=== PATIENT | male | born 1970 ===

== ENCOUNTER 2021-12-06 12:55 | Emergency (ER) | payer OTHER ==
[~2021-12-06] VITALS: Ht 175 cm; Wt 138.0 kg
[2021-12-06 13:21] LABS: BASOPHILS # (AUTO) 0.1 10^3/uL (0.0-0.1); BASOPHILS % (AUTO) 1 % (0-10); EOSINOPHILS # (AUTO) 0.1 10^3/uL (0.0-0.3); EOSINOPHILS % (AUTO) 1 % (0-10); HEMATOCRIT 46 % (40-54); HEMOGLOBIN 15.4 g/dL (13.3-17.7); LYMPHOCYTES # (AUTO) 1.9 10^3/uL (1.0-4.0); LYMPHOCYTES % (AUTO) 21 % (12-44); MEAN CORPUSCULAR HEMOGLOBIN 29 pg (25-34); MEAN CORPUSCULAR HGB CONC 34 g/dL (32-36); MEAN CORPUSCULAR VOLUME 87 fL (80-99); MEAN PLATELET VOLUME 9.8 fL (9.0-12.2); MONOCYTES # (AUTO) 0.4 10^3/uL (0.0-1.0); MONOCYTES % (AUTO) 4 % (0-12); NEUTROPHILS # (AUTO) 6.4 10^3/uL (1.8-7.8); NEUTROPHILS % (AUTO) 72 % (42-75); PLATELET COUNT 208 10^3/uL (130-400); WHITE BLOOD COUNT 8.8 10^3/uL (4.3-11.0)
--- NOTE | 2021-12-06 13:27 | ED Cardiac General ---
History of Present Illness General Chief Complaint: Cardiac/General Problems Stated Complaint: HIGH BP 225/115 Nursing Triage Note: PT AMB TO [facility] 3 WITH C/O DIZZINESS SINCE YESTERDAY AND HIGH BP WHEN HE CHECKED IT WITH HIS HOME MONITOR. PT STATES THE DIZZINES STARTED YESTERDAY WHILE HE WAS LYING DOWN AND IT HASNT GONE AWAY Source: patient Exam Limitations: no limitations History of Present Illness Date Seen by Provider: Dec 06, 2021 Time Seen by Provider: 13:25 Initial Comments To ER by private vehicle with reports of dizziness intermittently since . This seems to be brought on by laying down flat. He also has had some nausea and general malaise. No headache. He checked his blood pressure at home on a wrist blood pressure cuff and found it to be 225/115. His fiance then insisted he come to the emergency room to be checked out. Father has a history of strokes. At this time he has no dizziness but he does have some mild nausea. Timing/Duration: changing over time Severity: moderate Location: central Activities at Onset: none Prior CP/Workup: no prior chest pain NTG SL SENIOR SOFTWARE ARCHITECT: No ASA po SENIOR SOFTWARE ARCHITECT: No Associated Systoms: Malaise Allergies and Home Medications Allergies Coded Allergies: No Known Drug Allergies (Unverified , 12/06/21) Patient Home Medication List Home Medication List Reviewed: Yes Review of Systems Review of Systems Constitutional: see HPI, dizziness EENTM: See HPI Respiratory: No Symptoms Reported Cardiovascular: No Symptoms Reported Gastrointestinal: See HPI, Nausea Genitourinary: No Symptoms Reported Musculoskeletal: no symptoms reported Skin: no symptoms reported Psychiatric/Neurological: No Symptoms Reported Endocrine: No Symptoms Reported Hematologic/Lymphatic: No Symptoms Reported Past Llhcfcm-Bjejyq-Ynjvln Hx Patient Social History Tobacco Use?: No Substance use?: No Alcohol Use?: Yes Alcohol type: Beer Alcohol Frequency: Once in a while Pt feels they are or have been: No Immunizations Up To Date First/Initial COVID19 Vaccinat: 2020 Second COVID19 Vaccination Mike: 2020 COVID19 Vaccine Merchandise Flow Manager: SHARLA Past Medical History Surgery/Hospitalization HX: HTN Physical Exam Vital Signs Vital Signs - First Documented 12/06/21 13:04 Temp 36.0 Pulse 96 Resp 18 B/P (MAP) 143/91 (108) Capillary Refill : Height, Weight, BMI Height: '" Weight: lbs. oz. kg; 45.00 BMI Method: General Appearance: No Apparent Distress, WD/WN, Obese, Other (Blood pressure for us 140s over 90s sinus rhythm on EKG at 87 no ectopy normal intervals no ST segment change) HEENT: PERRL/EOMI, TMs Normal, Other (No nystagmus, tympanic membranes normal) Neck: Full Range of Motion, Normal Inspection Respiratory: No Accessory Muscle Use, No Respiratory Distress Cardiovascular: Regular Rate, Rhythm, Normal Peripheral Pulses Gastrointestinal: Normal Bowel Sounds, Non Tender, Soft Extremity: Normal Capillary Refill, Normal Inspection Neurologic/Psychiatric: Alert, Oriented x3 Skin: Normal Color, Warm/Dry Progress/Results/Core Measures Results/Orders Lab Results Laboratory Tests Test 12/06/21 13:12 12/06/21 14:06 Range/Units White Blood Count 8.8 4.3-11.0 10^3/uL Red Blood Count 5.28 4.30-5.52 10^6/uL Hemoglobin 15.4 13.3-17.7 g/dL Hematocrit 46 40-54 % Mean Corpuscular Volume 87 80-99 fL Mean Corpuscular Hemoglobin 29 25-34 pg Mean Corpuscular Hemoglobin Concent 34 32-36 g/dL Red Cell Distribution Width 13.0 10.0-14.5 % Platelet Count 208 130-400 10^3/uL Mean Platelet Volume 9.8 9.0-12.2 fL Immature Granulocyte % (Auto) 1 % Neutrophils (%) (Auto) 72 42-75 % Lymphocytes (%) (Auto) 21 12-44 % Monocytes (%) (Auto) 4 0-12 % Eosinophils (%) (Auto) 1 0-10 % Basophils (%) (Auto) 1 0-10 % Neutrophils # (Auto) 6.4 1.8-7.8 10^3/uL Lymphocytes # (Auto) 1.9 1.0-4.0 10^3/uL Monocytes # (Auto) 0.4 0.0-1.0 10^3/uL Eosinophils # (Auto) 0.1 0.0-0.3 10^3/uL Basophils # (Auto) 0.1 0.0-0.1 10^3/uL Immature Granulocyte # (Auto) 0.0 0.0-0.1 10^3/uL Prothrombin Time 13.2 12.2-14.7 SEC INR Comment 1.0 0.8-1.4 Activated Partial Thromboplast Time 32 24-35 SEC Sodium Level 138 135-145 MMOL/L Potassium Level 3.6 3.6-5.0 MMOL/L Chloride Level 105 98-107 MMOL/L Carbon Dioxide Level 20 L 21-32 MMOL/L Anion Gap 13 5-14 MMOL/L Blood Urea Nitrogen 13 7-18 MG/DL Creatinine 0.91 0.60-1.30 MG/DL Estimat Glomerular Filtration Rate 103 BUN/Creatinine Ratio 14 Glucose Level 137 H 70-105 MG/DL Calcium Level 9.1 8.5-10.1 MG/DL Corrected Calcium 9.0 8.5-10.1 MG/DL Magnesium Level 1.8 1.6-2.4 MG/DL Total Bilirubin 0.7 0.1-1.0 MG/DL Aspartate Amino Transf (AST/SGOT) 22 5-34 U/L Alanine Aminotransferase (ALT/SGPT) 27 0-55 U/L Alkaline Phosphatase 80 40-136 U/L Myoglobin 91.6 10.0-92.0 NG/ML Troponin I < 0.028 <0.028 NG/ML B-Type Natriuretic Peptide 27.5 <100.0 PG/ML Total Protein 7.3 6.4-8.2 GM/DL Albumin 4.1 3.2-4.5 GM/DL Serum Alcohol < 10 <10 MG/DL Urine Opiates Screen NEGATIVE NEGATIVE Urine Oxycodone Screen NEGATIVE NEGATIVE Urine Methadone Screen NEGATIVE NEGATIVE Urine Propoxyphene Screen NEGATIVE NEGATIVE Urine Barbiturates Screen NEGATIVE NEGATIVE Ur Tricyclic Antidepressants Screen NEGATIVE NEGATIVE Urine Phencyclidine Screen NEGATIVE NEGATIVE Urine Amphetamines Screen NEGATIVE NEGATIVE Urine Methamphetamines Screen NEGATIVE NEGATIVE Urine Benzodiazepines Screen NEGATIVE NEGATIVE Urine Cocaine Screen NEGATIVE NEGATIVE Urine Cannabinoids Screen NEGATIVE NEGATIVE My Orders Orders - GEMMA ROJAS APRN Cbc With Automated Diff (12/06/21 13:12) Magnesium (12/06/21 13:12) Chest 1 View, Ap/Pa Only (12/06/21 13:12) Ekg Tracing (12/06/21 13:12) Comprehensive Metabolic Panel (12/06/21 13:12) Myoglobin Serum (12/06/21 13:12) Protime With Inr (12/06/21 13:12) Partial Thromboplastin Time (12/06/21 13:12) O2 (12/06/21 13:12) Monitor-Rhythm Ecg Trace Only (12/06/21 13:12) Lipid Panel (12/07/21 06:00) Ed Iv/Invasive Line Start (12/06/21 13:12) Bnp [place] (12/06/21 13:12) Troponin I [place] (12/06/21 13:12) Drug Screen Stat (Urine) (12/06/21 13:12) Alcohol (12/06/21 13:12) Ondansetron Injection (Zofran Injectio (12/06/21 13:30) Ct Angio Head/Neck (12/06/21 13:24) Iohexol Injection (Omnipaque 350 Mg/Ml 1 (12/06/21 13:30) Received Contrast (Hold Metformin- Contr (12/06/21 13:30) Ns (Ivpb) (Sodium Chloride 0.9% Ivpb Bag (12/06/21 13:30) Sodium Chloride Flush (Catheter Flush Sy (12/06/21 13:30) Medications Given in ED Current Medications Medications Dose Ordered Sig/[place] Route Start Time Stop Time Status Last Admin Dose Admin Iohexol 75 ml ONCE ONCE IV 12/06/21 13:30 12/06/21 13:32 DC 12/06/21 13:50 75 ML Ondansetron HCl 8 mg ONCE ONCE IVP 12/06/21 13:30 12/06/21 13:31 DC 12/06/21 13:31 8 MG Sodium Chloride 10 ml NEEDED PRN IV 12/06/21 13:30 12/06/21 13:50 10 ML Sodium Chloride 100 ml ONCE ONCE IV 12/06/21 13:30 12/06/21 13:32 DC 12/06/21 13:50 80 ML Vital Signs/I&O 12/06/21 13:04 Temp 36.0 Pulse 96 Resp 18 B/P (MAP) 143/91 (108) Blood Pressure Mean: 108 Departure Communication (Admissions) NAME: JORDAN [facility] REC#: [id number] PT STATUS: REG ER : 1970 PHYSICIAN: GMEMA ROJAS HEEL CEMENTER MACHINE ADMIT DATE: 12/06/21/ER Draft Date of Exam:12/06/21 CHEST 1 VIEW, AP/PA ONLY INDICATION: Hypertension. Single AP view of chest is obtained. There is no previous study for comparison. FINDINGS: Heart size and pulmonary vascularity are within normal limits. There is asymmetric density projected over the upper aspect of the right chest which may be due to osseous superimposition. No pneumothorax or significant pleural fluid is seen. IMPRESSION: Asymmetric right apical density may be artifactual. Apical lordotic view could be obtained for confirmation. Otherwise, no acute abnormality is seen. Dictated on workstation # [id number] Dict: 12/06/21 1331 Trans: 12/06/21 1333 [id number] Interpreted by: TARAH PHAM MD Electronically signed by: Impression Primary Impression: Vertigo Disposition: 01 HOME, SELF-CARE Condition: Stable Departure-Patient Inst. Decision time for Depature: 14:37 Referrals: NO,LOCAL PHYSICIAN (PCP/Family) Primary Care Physician Patient Instructions: Dizziness, Adult ED Add. Discharge Instructions: 1. Your work-up here was unremarkable and very reassuring. If you have ongoing issues with dizziness you can get some meclizine [id number]. Follow-up with your primary care provider later this week or next for recheck. All discharge instructions reviewed with patient and/or family. Voiced understanding. Work/School Note: Work Release Form Date Seen in the Emergency Department: Dec 06, 2021 Return to Work: Dec 07, 2021 GEMMA ROJAS APRN Dec 06, 2021 13:27
[2021-12-06] MEDS ORDERED: IOHEXOL 350 MG/ML 100 ML (OMNIPAQUE 350) VIAL IV ONE (13:30)
[2021-12-06] MEDS ORDERED: ONDANSETRON 4 MG/2 ML (SDV) Z0FRAN IVP ONE (13:30)
[2021-12-06] MEDS ORDERED: NS 100 ML (IVPB) BAG IV ONE (13:30)
[2021-12-06] MEDS ORDERED: CATHETER FLUSH 10 ML SYR IV PRN (13:30)
[2021-12-06] MEDS ORDERED: HOLD METFORMIN - RECEIVED CONTRAST 20 ML VIAL IV SCH (13:30)
--- NOTE | 2021-12-06 13:34 | Diagnostic Imaging Report ---
INDICATION: Hypertension. Single AP view of chest is obtained. There is no previous study for comparison. FINDINGS: Heart size and pulmonary vascularity are within normal limits. There is asymmetric density projected over the upper aspect of the right chest which may be due to osseous superimposition. No pneumothorax or significant pleural fluid is seen. IMPRESSION: Asymmetric right apical density may be artifactual. Apical lordotic view could be obtained for confirmation. Otherwise, no acute abnormality is seen. Dictated by: Dictated on workstation # [id number]
[2021-12-06 13:40] LABS: ALBUMIN 4.1 GM/DL (3.2-4.5); POTASSIUM 3.6 MMOL/L (3.6-5.0); PROTHROMBIN TIME PATIENT 13.2 SEC (12.2-14.7)
[2021-12-06 13:41] LABS: CALCIUM 9.1 MG/DL (8.5-10.1)
[2021-12-06 13:43] LABS: TOTAL PROTEIN 7.3 GM/DL (6.4-8.2)
[2021-12-06 13:44] LABS: BILIRUBIN,TOTAL 0.7 MG/DL (0.1-1.0)
[2021-12-06 13:46] LABS: CREATININE SERUM 0.91 MG/DL (0.60-1.30)
[2021-12-06 13:49] LABS: MAGNESIUM 1.8 MG/DL (1.6-2.4)
[2021-12-06 14:22] LABS: AMPHETAMINE SCREEN, URINE NEGATIVE (NEGATIVE); BARBITURATE SCREEN URINE NEGATIVE (NEGATIVE); BENZODIAZEPINES SCREEN URINE NEGATIVE (NEGATIVE); CANNABINOID SCREEN, URINE NEGATIVE (NEGATIVE); COCAINE SCREEN URINE NEGATIVE (NEGATIVE); METHADONE STAT NEGATIVE (NEGATIVE); METHAMPHETAMINE SCREEN URINE S NEGATIVE (NEGATIVE); OPIATE SCREEN URINE NEGATIVE (NEGATIVE); OXYCODONE STAT NEGATIVE (NEGATIVE); PROPOXYPHENE STAT NEGATIVE (NEGATIVE); TRICYCLIC ANTIDEPRESSANTS SCRE NEGATIVE (NEGATIVE)
--- NOTE | 2021-12-06 14:29 | Diagnostic Imaging Report ---
PROCEDURE: CT angiography of the head and CT angiography of the neck with and without contrast. TECHNIQUE: Contiguous noncontrast images were obtained from the skull base through the vertex. After intravenous contrast administration, helical CT angiography of the neck was performed. Source data was reformatted into 3D MIP projections. Delayed postcontrast acquisition was also obtained. Auto Exposure Controls were utilized during the CT exam to meet ALARA standards for radiation dose reduction. INDICATION: Dizziness. COMPARISON: None available. FINDINGS: On noncontrast imaging, there is no intracranial hyperdense hemorrhage. No features of large territorial infarct. Lazaro-white matter differentiation is preserved. There is a 2.1 x 1.0 cm ovoid calcified mass along the right aspect of the midline falx that is dural based and most compatible with meningioma. No associated vasogenic edema or mass effect on the underlying frontal lobe. CTA imaging of the neck shows no dissection within the aortic arch. There is conventional three-vessel branching pattern of the aortic arch. The bilateral common carotid arteries are widely patent. There is no stenosis of the internal carotid arteries per NASCET criteria. The cervical divisions of the internal carotid arteries are normal. Vertebral arteries are codominant, and there is no dissection or occlusion of either of the vertebral arteries. Thyroid is normal. No supraclavicular or axillary lymphadenopathy. Airway is patent. Lung apices are clear. No osseous abnormality in the cervical spine. CTA imaging of the head shows the distal internal carotid arteries to be widely patent. The M1 and M2 divisions of the middle cerebral arteries are normal. The anterior cerebral arteries are patent. Basilar artery is widely patent. Posterior cerebral arteries are patent centrally. No saccular aneurysm within the resighini of Garcia. The dural venous sinuses are patent. IMPRESSION: 1. No intracranial hemorrhage, large vessel occlusion, or saccular aneurysm. 2. Dural venous sinuses are patent. 3. No stenosis or occlusion within the major neck arteries. Dictated by: Dictated on workstation # [id number]
[2021-12-06] MEDS ORDERED: MECLIZINE 25 MG (ANTIVERT) TAB ONE (14:44)
[2021-12-06] MEDS ORDERED: MECLIZINE 25 MG (ANTIVERT) TAB PO ONE (14:45)
[2021-12-06 14:50] VITALS: BP 113/73
== END 2021-12-06 14:50 | disposition home or self-care (01) ==
LOC: ER 12:58
DX: R42 Dizziness and giddiness (principal); E66.9 Obesity, unspecified; Z68.42 Body mass index [BMI] 45.0-49.9, adult
CPT/HCPCS: 70496; 70498; 71045; 80053; 80306; 83735; 83874; 83880; 84484; 85025; 85610; 85730; 93005; 93041; 99284; G0480; 36415; 80320